=== PATIENT | female | born 1980 | race Caucasian/White ===

== ENCOUNTER 2022-10-05 05:58 | Emergency (ER) | payer MEDICAID ==
[2022-10-05] MEDS ORDERED: XYLOCAINE 1% HCL 20 ML MDV ONE (06:10)
[2022-10-05 06:13] VITALS: BP 156/88; PULSE 98; RESP 18; TEMP 97.8; O2SAT 98
--- NOTE | 2022-10-05 06:47 | ERPHSYRPT ---
- History of Present Illness Time Seen by Provider: 10/05/22 06:44 Source: patient Exam Limitations: no limitations Patient Subjective Stated Complaint: pt states I sliced my finger trying to seperate sausage Triage Nursing Assessment: pt ambulated into the er; pt is axo x4; c/o laceration to left index finger; laceration was reinforced; moderate bleeding present to left index; strong left radial pulse; hypertension; skin is PDW; no respiratory distress present Physician History: Patient is a 42-year-old female presents to our ED for evaluation and treatment of a finger laceration. Patient was cutting sausages earlier this morning. Patient states that the knife slipped thereby cutting her left index finger particularly at the volar aspect. There is a flap type laceration. No tendon involvement. Pain described as an ache that is localized. No other injuries reported. Patient is not sure if her tetanus is up-to-date however she declined a tetanus update.. Patient voices no other complaints or concerns at this time. Portions of this note were created with voice recognition technology. There may be grammatical, spelling, punctuation or sound alike errors Timing/Duration: today Severity: mild Modifying Factors: Improves With: nothing Associated Symptoms: denies symptoms Allergies/Adverse Reactions: No Known Drug Allergies Allergy (Verified 10/05/22 06:02) Hx Tetanus, Diphtheria Vaccination/Date Given: Yes (unsure) Hx Influenza Vaccination/Date Given: No Hx Pneumococcal Vaccination/Date Given: No Travel Risk - International Travel Have you traveled outside of the country in past 3 weeks: No - Coronavirus Screening Are you exhibiting any of the following symptoms?: No Close contact with a COVID-19 positive Pt in past 14-21 Days: No - Vaccine Status Have you recieved a Covid-19 vaccination: No - Review of Systems Constitutional: No Symptoms, No Fever, No Chills Eyes: No Symptoms Ears, Nose, & Throat: No Symptoms Respiratory: No Symptoms, No Cough, No Dyspnea Cardiac: No Symptoms, No Chest Pain, No Edema, No Syncope Abdominal/Gastrointestinal: No Symptoms, No Abdominal Pain, No Nausea, No Vomiting, No Diarrhea Genitourinary Symptoms: No Symptoms, No Dysuria Musculoskeletal: No Symptoms, No Back Pain, No Neck Pain Skin: No Symptoms, No Rash Neurological: No Symptoms, No Dizziness, No Focal Weakness, No Sensory Changes Psychological: No Symptoms Endocrine: No Symptoms Hematologic/Lymphatic: No Symptoms Immunological/Allergic: No Symptoms All Other Systems: Reviewed and Negative - Past Medical History Pertinent Past Medical History: No Neurological History: No Pertinent History ENT History: No Pertinent History Cardiac History: No Pertinent History Respiratory History: No Pertinent History Endocrine Medical History: No Pertinent History Musculoskeletal History: No Pertinent History GI Medical History: No Pertinent History History: No Pertinent History Psycho-Social History: No Pertinent History Female Reproductive Disorders: No Pertinent History - Past Surgical History Past Surgical History: Yes Neuro Surgical History: No Pertinent History Cardiac: No Pertinent History Respiratory: No Pertinent History Gastrointestinal: Cholecystectomy Genitourinary: No Pertinent History Musculoskeletal: No Pertinent History Female Surgical History: Section Other Surgical History: x 3 - Social History Smoking Status: Current every day smoker How long have you smoked: 10 Exposure to second hand smoke: Yes Drug Use: none Patient Lives Alone: No - Female History Hx Now: No - Nursing Vital Signs Nursing Vital Signs: Initial Vital Signs Temperature 97.8 F 10/05/22 06:03 Pulse Rate 98 H 10/05/22 06:03 Respiratory Rate 18 10/05/22 06:03 Blood Pressure 156/88 10/05/22 06:03 O2 Sat by Pulse Oximetry 98 10/05/22 06:03 Pain Scale Pain Intensity 0 - Physical Exam General Appearance: no apparent distress, alert Eye Exam: PERRL/EOMI, eyes nml inspection Ears, Nose, Throat Exam: normal ENT inspection, moist mucous membranes Neck Exam: normal inspection, full range of motion Respiratory Exam: lungs clear, airway intact, No respiratory distress Cardiovascular Exam: regular rate/rhythm, normal heart sounds, normal peripheral pulses Gastrointestinal/Abdomen Exam: soft, normal bowel sounds, No tenderness, No mass Back Exam: normal inspection, normal range of motion, No CVA tenderness, No vertebral tenderness Extremity Exam: normal inspection, normal range of motion, pelvis stable Neurologic Exam: alert, oriented x 3, cooperative, normal mood/affect, sensation nml, No motor deficits Skin Exam: normal color, warm, dry, other (There is a flap at the left finger volar aspect measuring 1 cm x 0.5 cm.), No rash Lymphatic Exam: No adenopathy SpO2 Interpretation: normal SpO2: 98 O2 Delivery: Room Air Procedures - Laceration/Wound Repair Left Finger Time of Procedure: 06:41 Wound Location: Left (Left index finger volar aspect) Wound Length (cm): 2.5 Wound Explored: clean Irrigated: Yes Hibiclens Prep: Yes Anesthesia: local, 1% Lidocaine Volume Anesthetic (ccs): 3 Wound Debrided: No debridement indicated Number of Sutures: 6 Layer Closure?: No Splint Applied?: Yes Progress: Patient neurovascular intact distally pre-and post procedure. No intra or postprocedural complications. Patient tolerated procedure well. 10/05/22 06:43 - Course Nursing assessment & vital signs reviewed: Yes Ordered Tests: Medication Summary Discontinued Medications Generic Name Dose Route Start Last Admin Trade Name Kassy PRN Reason Stop Dose Admin Lidocaine HCl Confirm 10/05/22 06:10 Lidocaine Hcl 1% 20 Ml Mdv 20 Ml Ml Administered 10/05/22 06:11 Dose 1 ml .ROUTE .[employer] ONE - Progress Progress: improved Progress Note: Patient is a 42-year-old female presents to our ED with a flap-like laceration to the volar aspect of the left index finger. Injury occurred just prior to arrival. Physical exam reveals a flap measuring 1 cm on both sides by a width of 1.5 cm. The digit is otherwise neurovascular tact distally. Compartments are soft. Cap refill less than 2 seconds. The flap was repaired with 6 simple interrupted sutures. The suture material was 5-0 nylon. Patient neurovascular intact pre and post procedure. Patient tolerated procedure well. Patient received a sterile dressing and a finger splint. Sutures are to be removed in 1 week's time. A prescription for Keflex was forwarded to patient's pharmacy. Patient declined a tetanus update. Patient agrees to follow-up with her primary care doctor within 48 hours for reevaluation. Portions of this note were created with voice recognition technology. There may be grammatical, spelling, punctuation or sound alike errors Complexity of problems addressed is low acute uncomplicated No critical care time Complexity of data reviewed and analyzed is none. No specialized testing ordered. Diagnosis made based on history and physical examination. Risk of complication and or risk of morbidity/mortality of patient management is moderate. Patient received local injection. Sutures placed. A prescription for Keflex was forwarded to patient's pharmacy. Patient declined tetanus update We will discharge home. Vital stable. Diagnosis is finger laceration. Time spent to discharge patient is approximately 15 minutes. Plan of care established for shared decision making. No social determinants of health present to impede follow-up. Patient voices no other complaints or concerns at this time. Portions of this note were created with voice recognition technology. There may be grammatical, spelling, punctuation or sound alike errors 10/05/22 06:47 Counseled pt/family regarding: diagnosis, need for follow-up - Departure Departure Disposition: Home Clinical Impression: Finger laceration Condition: Stable Critical Care Time: No Additional Instructions: Discharge/Care Plan LOUGUERRERO ZHOU was seen on 10/05/22 in the Emergency Room. The patient was counseled regarding Diagnosis,Lab results, Imaging studies, need for follow up and when to return to the Emergency Room. Prescriptions given: Discharge Note I have spoken with the patient and/or caregivers. I have explained the patient's condition, diagnosis and treatment plan based on the information available to me at this time. I have answered the patient's and/or caregiver's questions and addressed any concerns. The patient and/or caregivers have as good understanding of the patient's diagnosis, condition and treatment plan as can be expected at this point. The vital signs have been stable. The patient's condition is stable and appropriate for discharge from the emergency department. The patient will pursue further outpatient evaluation with the primary care physician or other designated or consulting physician as outlined in the discharge instructions. The patient and/or caregivers are agreeable to this plan of care and follow-up instructions have been explained in detail. The patient and/or caregivers have received these instruction. The patient/and or caregivers are aware that any significant change in condition or worsening of symptoms should prompt an immediate return to this or the closest emergency department or call 911. Prescriptions: Cephalexin Mh 500 mg [Keflex 500 mg] 500 mg PO TID #21 cap
[2022-10-05] MEDS ORDERED: XYLOCAINE 1% HCL 20 ML MDV IJ ONE (06:55)
[2022-10-05] MEDS ORDERED: BACIGUENT PACKET TP ONE (06:57)
== END 2022-10-05 07:05 | disposition home or self-care (01) ==
LOC: ED 05:58
DX: S61.211A Laceration without foreign body of left index finger without damage to nail, initial encounter (principal); W26.0XXA Contact with knife, initial encounter; Y93.G1 Activity, food preparation and clean up; Z28.310 Unvaccinated for COVID-19; Z72.0 Tobacco use
CPT/HCPCS: 12001; 99283; A9270-GY